=== PATIENT | female | born 1975 | race Caucasian/White ===

== ENCOUNTER 2020-11-03 09:00 | Observation (INO) | payer OTHER ==
[2020-11-03 09:45] LABS: Absolute Lymphocytes (CBC) 2.5 K/uL (0.7-4.9); Basophils % 0.6 % (0-1.3); Hematocrit 42.3 % (36.0-45.0); Lymphocytes % 30.9 % (15.3-44.8); RBC Red Blood Cell Count 4.89 M/uL (3.86-4.86)
[2020-11-03 09:47] LABS: Protime INR 0.94
[2020-11-03] MEDS ORDERED: ASPIRIN 81 MG CHEWABLE TABLET ONE (09:57)
[2020-11-03 10:07] LABS: ALT/SGPT 24 U/L (12-78); AST/SGOT 10 U/L (15-37); Albumin 3.6 g/dL (3.4-5.0); Alkaline Phosphatase 113 U/L (45-117); BUN Blood Urea Nitrogen 12 mg/dL (7-18); Bicarbonate 26 mmol/L (21-32); Bilirubin Direct 0.2 mg/dL (0-0.2); Bilirubin Total 0.8 mg/dL (0.2-1.0); Glucose Level 98 mg/dL (74-106); Magnesium 2.1 mg/dL (1.8-2.4); NT PRO-BNP 58 pg/mL (<125); Potassium 3.9 mmol/L (3.5-5.1); Protein, Total 7.8 g/dL (6.4-8.2); Sodium Level 143 mmol/L (136-145); Troponin (Emerg Dept Use Only) < 0.02 ng/mL (0.0-0.045)
--- NOTE | 2020-11-03 10:12 | RAD REPORT ---
EXAM DESCRIPTION: Stefany Single View11/03/2020 9:47 am CLINICAL HISTORY: Chest pain COMPARISON: 2015 FINDINGS: The lungs appear clear of acute infiltrate. The heart is normal size IMPRESSION: No acute abnormalities displayed
[2020-11-03 11:00] LABS: Urine Blood NEGATIVE (NEG); Urine Glucose NEGATIVE (NEG); Urine Protein NEGATIVE (NEG)
--- NOTE | 2020-11-03 12:13 | RAD REPORT ---
EXAM DESCRIPTION: CT - Abdomen Pelvis W Contrast - 11/03/2020 11:35 am CLINICAL HISTORY: Abdominal pain COMPARISON: none. TECHNIQUE: Computed axial tomography of the abdomen pelvis was obtained. 100 cc Isovue-300 was admin istered intravenously. Oral contrast was not requested which limits evaluation of bowel. All CT scans are performed using dose optimization technique as appropriate and may include automated exposure control or mA/KV adjustment according to patient size. FINDINGS: Cholecystectomy The liver, spleen, pancreas, adrenal and kidneys appear unremarkable. There is no evidence of diverticulitis. Normal appendix Mild stranding within the mesenteric fat centrally IMPRESSION: Mild stranding within the mesenteric fat centrally may indicate a mesenteritis
--- NOTE | 2020-11-03 12:27 | EDPHYS ---
Physician Documentation [facility] Name: Joana Pearce Age: 45 yrs Sex: Female : 1975 Arrival Date: 11/03/2020 Time: 09:01 Bed 13 Private MD: ED Physician Aroldo Ash HPI: 11/03 09:26 This 45 yrs old Female presents to ER via Ambulatory with complaints of Chest kb Pain, Back Pain. 09:26 The patient or guardian reports chest pain that is located primarily in the anterior kb chest wall, left. Onset: 2 day(s) ago. The pain radiates to left back. Associated signs and symptoms: Pertinent positives: abdominal pain, chest congestion. The chest pain is described as aching. Duration: The patient or guardian reports a single episode, that is still ongoing, and unchanged. Modifying factors: The symptoms are alleviated by nothing. the symptoms are aggravated by nothing. Severity of pain: At its worst the pain was moderate in the emergency department the pain is unchanged. The patient has not experienced similar symptoms in the past. The patient has not recently seen a physician. Pt reports she has had left sided chest pain that radiates to back for 2 days. States she has also had gas so she has been taking antacids, which helps the gas but hasn't done anything for the chest pain. States she had lower abd pain yesterday and low back spasms. Reports she stopped taking her metoprolol, lisinopril, clopidogrel, and atorvastatin 2 months ago. Also reports infected tooth a couple of weeks ago that the dentist wanted to pull, but she wanted to try antibiotics and she only took 3-4 days worth of them, did not complete the course. . Historical: - Allergies: 09:09 PENICILLINS; iw - PMHx: 09:09 Anxiety; Seizures; Myocardial infarction; iw - PSHx: 09:09 Heart stents; iw - Immunization history:: Adult Immunizations not up to date. - Social history:: Smoking status: Patient denies any tobacco usage or history of. ROS: 09:23 Constitutional: Negative for fever, chills, and weight loss, Respiratory: Negative for kb shortness of breath, cough, wheezing, and pleuritic chest pain, MS/Extremity: Negative for injury and deformity, Skin: Negative for injury, rash, and discoloration, Neuro: Negative for headache, weakness, numbness, tingling, and seizure. 09:23 Cardiovascular: Positive for chest pain, of the anterior aspect of left upper chest, Negative for edema, orthopnea, palpitations, paroxysmal nocturnal dyspnea. 09:23 Abdomen/GI: Positive for abdominal pain, Negative for nausea, vomiting, and diarrhea. Exam: 09:23 Constitutional: This is a well developed, well nourished patient who is awake, alert, kb and in no acute distress. Head/Face: Normocephalic, atraumatic. Chest/axilla: Normal chest wall appearance and motion. Nontender with no deformity. No lesions are appreciated. Cardiovascular: Regular rate and rhythm with a normal S1 and S2. No gallops, murmurs, or rubs. Normal PMI, no JVD. No pulse deficits. Respiratory: Lungs have equal breath sounds bilaterally, clear to auscultation and percussion. No rales, rhonchi or wheezes noted. No increased work of breathing, no retractions or nasal flaring. Skin: Warm, dry with normal turgor. Normal color with no rashes, no lesions, and no evidence of cellulitis. MS/ Extremity: Pulses equal, no cyanosis. Neurovascular intact. Full, normal range of motion. Neuro: Awake and alert, GCS 15, oriented to person, place, time, and situation. Cranial nerves II-XII grossly intact. Motor strength 5/5 in all extremities. Sensory grossly intact. Cerebellar exam normal. Normal gait. 09:23 Constitutional: The patient appears anxious. 09:23 Abdomen/GI: Inspection: abdomen appears normal, Bowel sounds: normal, Palpation: soft, in all quadrants, mild abdominal tenderness, in the suprapubic area and left lower quadrant. 09:24 ECG was reviewed by the Attending Physician. kb Vital Signs: 09:06 BP 148 / 95; Pulse 75; Resp 16; Temp 98.6; Pulse Ox 100% on R/A; iw 09:55 BP 142 / 93; Pulse 74; Resp 16; bp 10:19 BP 142 / 86; Pulse 68; Resp 19; Pulse Ox 99% on R/A; mh5 11:00 BP 141 / 84; Pulse 72; Resp 19; Pulse Ox 100% ; bp 12:00 BP 173 / 95; Pulse 72; Resp 19; Pulse Ox 100% ; bp 13:00 BP 146 / 97; Pulse 76; Resp 19; Pulse Ox 99% ; bp 13:59 BP 155 / 89; Pulse 72; Resp 21; Pulse Ox 99% ; bp MDM: 09:10 Patient medically screened. kb 09:23 Data reviewed: vital signs, nurses notes. Data interpreted: Pulse oximetry: on room air kb is 100 %. Interpretation: normal. 12:23 The patient was given aspirin in the Emergency Department. Counseling: I had a detailed kb discussion with the patient and/or guardian regarding: the historical points, exam findings, and any diagnostic results supporting the discharge/admit diagnosis, lab results, radiology results, the need for further work-up and treatment in the hospital. 12:25 Physician consultation: Michele Ash MD was contacted at 12:26, regarding admission, kb to the telemetry unit. patient's condition, and will see patient in ED, shortly. 11/03 09:23 Order name: Basic Metabolic Panel kb 11/03 09:23 Order name: CBC with Diff; Complete Time: 09:48 kb 11/03 09:23 Order name: LFT's; Complete Time: 10:09 kb 11/03 09:23 Order name: Magnesium; Complete Time: 10:09 kb 11/03 09:23 Order name: NT PRO-BNP; Complete Time: 10:09 kb 11/03 09:23 Order name: PT-INR; Complete Time: 09:48 kb 11/03 09:23 Order name: Troponin (emerg Dept Use Only); Complete Time: 10:09 kb 11/03 09:23 Order name: XRAY Chest (1 view); Complete Time: 10:19 kb 11/03 09:23 Order name: Basic Metabolic Panel; Complete Time: 10:09 EDMS 11/03 10:20 Order name: Urine Dipstick--Ancillary (enter results); Complete Time: 11:06 eb 11/03 10:20 Order name: Urine --Ancillary (enter results); Complete Time: 11:06 eb 11/03 11:10 Order name: CT Abd/Pelvis - IV Contrast Only; Complete Time: 12:14 kb 11/03 11:17 Order name: SARS-COV-2 RT PCR; Complete Time: 11:22 EDMS 11/03 09:23 Order name: EKG; Complete Time: 09:24 kb 11/03 09:23 Order name: Cardiac monitoring; Complete Time: 09:33 kb 11/03 09:23 Order name: EKG - Nurse/Tech; Complete Time: 09:27 kb 11/03 09:23 Order name: IV Saline Lock; Complete Time: 09:35 kb 11/03 09:23 Order name: Labs collected and sent; Complete Time: 09:35 kb 11/03 09:23 Order name: O2 Per Protocol; Complete Time: 09:35 kb 11/03 09:23 Order name: O2 Sat Monitoring; Complete Time: 09:35 kb 11/03 09:23 Order name: Urine Dipstick-Ancillary (obtain specimen); Complete Time: 11:45 kb 11/03 13:12 Order name: CONS Physician Consult EDMS EC:24 Rate is 69 beats/min. Rhythm is regular. QRS Rowe is Normal. TN interval is normal at kb 152 msec. QRS interval is normal at 78 msec. QT interval is normal at 386 msec. Administered Medications: 09:47 Drug: Aspirin Chewable Tablet 324 mg Route: PO; bp 09:54 Follow up: Only 3 baby aspirins given per SECURITY SYSTEMS SALES REPRESENTATIVE direction. Patient took 1 baby aspirin LENS EDGER.bp Disposition: 15:14 Co-signature as Attending Physician, Aroldo Ash MD. rn Disposition: 11/03/20 12:26 Hospitalization ordered by Michele Ash for Observation. Preliminary diagnosis is Chest pain, unspecified. - Bed requested for Telemetry/MedSurg (observation). - Status is Observation. bp - Condition is Stable. - Problem is new. - Symptoms are unchanged. Signatures: Dispatcher [employer] EDNV Louisa Griffith, SHERMAN-C VEGETABLE VENDOR-CkAicha Cabral, RN TRIP Aroldo Ash MD MD rn Peltier, Brian, RN RN bp Botello, Elizabeth eb Corrections: (The following items were deleted from the chart) 09:47 09:26 Pt reports she has had left sided chest pain that radiates to back for 2 days. kb States she has also had gas so she has been taking antacids, which helps the gas but hasn't done anything for the chest pain. States she had lower abd pain yesterday and low back spasms. Reports she stopped taking her metoprolol, lisinopril and carvedilol 2 months ago. Also reports infected tooth a couple of weeks ago that the dentist wanted to pull, but she wanted to try antibiotics and she only took 3-4 days worth of them, did not complete the course. . kb 10:21 09:32 CORONAVIRUS+MR.LAB.BRZ ordered. EDMS EDMS 13:33 12:26 Hospitalization Ordered by Michele Ash MD for Observation. Preliminary eb diagnosis is Chest pain, unspecified. Bed requested for Telemetry/MedSurg (observation). Status is Observation. Condition is Stable. Problem is new. Symptoms are unchanged. kb 15:13 13:33 11/03/2020 12:26 Hospitalization Ordered by Michele Ash MD for Observation. bp Preliminary diagnosis is Chest pain, unspecified. Bed requested for Telemetry/MedSurg (observation). Status is Observation. Condition is Stable. Problem is new. Symptoms are unchanged. eb
--- NOTE | 2020-11-03 12:27 | ER ---
Nurse's Notes [facility] Name: Joana Pearce Age: 45 yrs Sex: Female : 1975 Arrival Date: 11/03/2020 Time: 09:01 Bed 13 Private MD: Diagnosis: Chest pain, unspecified Presentation: 11/03 09:06 Chief complaint: Patient states: for 2 days has had bad indigestion, gets relief from OTC medicine, is having left sided chest pain through her back and feels breathing is different , has hx of [place] in 2017, had 3 stents placed at [facility], also has intermittent lower and pain, yesterday pain was really bad in lower abd. Coronavirus screen: At this time, the client does not indicate any symptoms associated with coronavirus-19. Ebola Screen: Patient negative for fever greater than or equal to 101.5 degrees Fahrenheit, and additional compatible Ebola Virus Disease symptoms Patient denies exposure to infectious person. Patient denies travel to an Ebola-affected area in the 21 days before illness onset. No symptoms or risks identified at this time. Initial Sepsis Screen: Does the patient meet any 2 criteria? No. Patient's initial sepsis screen is negative. Does the patient have a suspected source of infection? No. Patient's initial sepsis screen is negative. Risk Assessment: Do you want to hurt yourself or someone else? Patient reports no desire to harm self or others. Onset of symptoms was November 01, 2020. 09:06 Method Of Arrival: Ambulatory iw 09:06 Acuity: BRIAN 2 iw Triage Assessment: 09:10 General: Appears distressed, comfortable, Behavior is cooperative, appropriate for age, bp anxious. Pain: Complains of pain in left lower quadrant and suprapubic area and chest and anterior aspect of left upper chest. EENT: No deficits noted. Neuro: No deficits noted. Cardiovascular: Rhythm is sinus rhythm. Respiratory: No deficits noted. GI: Reports lower abdominal pain, upper abdominal pain. : No signs and/or symptoms were reported regarding the genitourinary system. Derm: No deficits noted. Musculoskeletal: No deficits noted. Historical: - Allergies: 09:09 PENICILLINS; iw - PMHx: 09:09 Anxiety; Seizures; Myocardial infarction; iw - PSHx: 09:09 Heart stents; iw - Immunization history:: Adult Immunizations not up to date. - Social history:: Smoking status: Patient denies any tobacco usage or history of. Screenin:15 Abuse screen: Denies threats or abuse. Denies injuries from another. Nutritional bp screening: No deficits noted. Tuberculosis screening: No symptoms or risk factors identified. Fall Risk None identified. Assessment: 09:10 General: SEE TRIAGE NOTE. Pain: Pain radiates to left arm Pain began 2-3 days ago. bp 10:00 Reassessment: No changes from previously documented assessment. Patient and/or family bp updated on plan of care and expected duration. Pain level reassessed. Patient is alert, oriented x 3, equal unlabored respirations, skin warm/dry/pink. 11:00 Reassessment: No changes from previously documented assessment. Patient and/or family bp updated on plan of care and expected duration. Pain level reassessed. Patient is alert, oriented x 3, equal unlabored respirations, skin warm/dry/pink. ALL CURRENT ORDERS COMPLETED. 12:00 Reassessment: No changes from previously documented assessment. Patient and/or family bp updated on plan of care and expected duration. Pain level reassessed. Patient is alert, oriented x 3, equal unlabored respirations, skin warm/dry/pink. ADMIT PENDING. 13:00 Reassessment: No changes from previously documented assessment. Patient and/or family bp updated on plan of care and expected duration. Pain level reassessed. Patient is alert, oriented x 3, equal unlabored respirations, skin warm/dry/pink. 13:57 Reassessment: ADMIT COMPLETED. PT ASSIGNED 205. bp Vital Signs: 09:06 BP 148 / 95; Pulse 75; Resp 16; Temp 98.6; Pulse Ox 100% on R/A; iw 09:55 BP 142 / 93; Pulse 74; Resp 16; bp 10:19 BP 142 / 86; Pulse 68; Resp 19; Pulse Ox 99% on R/A; mh5 11:00 BP 141 / 84; Pulse 72; Resp 19; Pulse Ox 100% ; bp 12:00 BP 173 / 95; Pulse 72; Resp 19; Pulse Ox 100% ; bp 13:00 BP 146 / 97; Pulse 76; Resp 19; Pulse Ox 99% ; bp 13:59 BP 155 / 89; Pulse 72; Resp 21; Pulse Ox 99% ; bp ED Course: 09:01 Patient arrived in ED. mr 09:08 Triage completed. iw 09:09 [facility]C [facility]. kb 09:09 Aroldo Ash MD is Attending Physician. kb 09:09 Arm band placed on. iw 09:11 Marky Rodriguez, RN is Primary Nurse. bp 09:33 Patient has correct armband on for positive identification. Placed in gown. Bed in low mh5 position. Call light in reach. Side rails up X 1. Warm blanket given. teletypesetter monitor on. Pulse ox on. NIBP on. 09:33 Initial lab(s) drawn, by ED staff, sent to lab. EKG done. mh5 09:35 Inserted saline lock: 22 gauge in right forearm, using aseptic technique. Blood bp collected. 09:45 COVID swab sent to lab. mh5 09:47 XRAY Chest (1 view) In Process Unspecified. EDMS 10:20 Urine collected: clean catch specimen, clear. mh5 11:36 CT Abd/Pelvis - IV Contrast Only In Process Unspecified. EDMS 12:26 Michele Ash MD is Hospitalizing Provider. kb 14:42 No provider procedures requiring assistance completed. Patient admitted, IV remains in bp place. Patient maintains SpO2 saturation greater than 95% on room air. Administered Medications: 09:47 Drug: Aspirin Chewable Tablet 324 mg Route: PO; bp 09:54 Follow up: Only 3 baby aspirins given per SEISMIC INTERPRETER direction. Patient took 1 baby aspirin APPLE PACKING HEADER.bp Intake: Outcome: 12:26 Decision to Hospitalize by Provider. kb 14:37 Admitted to Tele accompanied by tech, via wheelchair, room 205, with chart, Report bp called to ANOOP DOMINIQUE 14:37 Condition: stable 14:37 Instructed on the need for admit. 15:13 Patient left the ED. bp Signatures: Dispatcher [employer] EDMS Louisa Griffith FNP-C FNP-Ckb Milad Carmina Aicha Gardiner, TRIP RN Alaina Diaz [facility] Marky Rodriguez, RN RN bp Corrections: (The following items were deleted from the chart) 10:21 09:44 CORONAVIRUS+MR.LAB.BRZ drawn and sent. [facility] EDMS
--- NOTE | 2020-11-03 12:28 | EKG ---
Test Date: 2020-11-03 Test Time: 09:15:22 Braiding Machine Operator: EDISON MEASUREMENT RESULTS: Intervals: Rate: 69 NC: 152 QRSD: 78 QT: 386 QTc: 413 Bogard: P: 40 NC: 152 QRS: 42 T: 10 INTERPRETIVE STATEMENTS: Normal sinus rhythm Cannot rule out Anterior infarct, age undetermined Abnormal ECG Compared to ECG 07/30/2016 06:57:46 Myocardial infarct finding now present T-wave abnormality no longer present Possible ischemia no longer present Electronically Signed On 11-03-20 12:27:38 GROUP SOCIAL WORKER by Flavio Vasquez
--- NOTE | 2020-11-03 13:24 | P.HP ---
Certification for Inpatient Patient admitted to: Observation With expected LOS: <2 Midnights Practitioner: I am a practitioner with admitting privileges, knowledge of patient current condition, hospital course, and medical plan of care. Services: Services provided to patient in accordance with Admission requirements found in Title 42 Section 412.3 of the Code of Federal Regulations Patient History Date of Service: 11/03/20 Reason for admission: Chest Pain, Abdominal pain History of Present Illness: 45yo F, PMH: CAD prior [place] now s/p stents, HTN, Esophageal stricture, GERD who presents to ED due to significant left sided chest pain. Pain is Left sided, sharp and pressure-like, constant since yesterday but severity changes. Reports started 4 days ago with intermittent chest pain. Patient initially thought this was her indigestion, and took some antacids which did help ease the pain slightly. She reports drinking a lot of pineapple juice, and eating red pepper flakes with tumeric on her rice daily for past week. She stopped taking her cardiac medications 2 months ago on her own. She also endorses some abdominal pain and bloating for the past several days as well, possibly intermittently over the past month. She reports no nausea/vomiting, but lots of pain/gas - improved with bowel movements. She was seen previously by Dr. Wilkins ~2 yrs ago, noted to have esophageal stricture needing dilation and gastric ulcers - pt reports she does not take any daily PPI/antacid. In the ED, labwork was rather unremarkable, he states she without any signs of any ischemia, initial troponin negative, CXR: No acute abnormalities. CT abdomen/pelvis: Mild stranding within the mesenteric fat centrally which may indicate a mesenteritis. Allergies Penicillins Allergy (Verified 11/03/20 14:37) Shortness of breath Home Medications: Atorvastatin Calcium [Lipitor] 80 mg PO BEDTIME 11/03/20 Clopidogrel Bisulfate [Plavix] 75 mg PO DAILY 11/03/20 Metoprolol Tartrate 25 mg PO BID 11/03/20 lisinopriL [Lisinopril] 5 mg PO DAILY 11/03/20 - Past Medical/Surgical History -: GERD -: CAD, prior [place], status post stents -: Hypertension -: Esophageal stricture s/p dilation -: Cardiac stents -: Cholecystectomy -: Hysterectomy -: c-sxn - Family History Father History Unknown: Yes -: Heart disease Mother History Unknown: Yes -: Stroke, Cancer, Seizures, Blood disorders, Other (see notes) - Social History Smoking Status: Never smoker Alcohol use: Yes Place of Residence: Home Review of Systems 10-point ROS is otherwise unremarkable Physical Examination - Studies Laboratory Data (last 24 hrs) 11/03/20 09:35: PT 10.8, INR 0.94 11/03/20 09:35: WBC 8.20, Hgb 14.2, Hct 42.3, Plt Count 398 11/03/20 09:35: Sodium 143, Potassium 3.9, BUN 12, Creatinine 0.33 L, Glucose 98, Magnesium 2.1, Total Bilirubin 0.8, AST 10 L, ALT 24, Alkaline Phosphatase 113 Assessment and Plan - Advance Directives Does patient have a Living Will: No Does patient have a Durable POA for Healthcare: No Physician Review Additional Text: Physical Exam: Gen: NAD, AAOx3 HEENT: normal conjunctiva, sclera anicteric CV: RRR, +systolic murmur, +TTP at left chest Pulm: CTAB, no wheeze/rales, nonlabored on RA Abd: +epigastric tenderness, no rebound, soft Ext: no rash, no edema neuro: AAOx3, moves all extremities Problem List: Chest Pain CAD s/p stenting Abdominal pain & Bloating, mesenteritis HTN Esophageal stricture -given significant cardiac history and patient off medications x 2 months, concern for cardiac etiology -pt's EKG and initial trop ok, with some tenderness on chest wall -cardiology consulted -trend trop, start ASA, statin, BB -pt also with abdominal pain/bloating, h/o ulcers, CT showing mesenteritis - will consult GI as well, possible ulcers may be source of pain - pt states antacids help take the edge off, but not away completely. has been eating red peppers, acidic drinks lately as well -for possible EGD tomorrow if cardiac workup negative -Cipro & flagyl for mesenteritis VTE: lovenox Code: full Dispo: anticipate dc home in 24-48hrs Time Spent Managing Pts Care (In Minutes): 65
[2020-11-03 15:42] VITALS: BMI 25.4
[2020-11-03 15:44] LABS: HDL Cholesterol 45 mg/dL (40-60); LDL Cholesterol, Calculated 131 (<130); Troponin I < 0.02 ng/mL (0.0-0.045)
[2020-11-03] MEDS: ENOXAPARIN 40 MG/0.4 ML SQ SCH (15:53)
[2020-11-03] MEDS: SUCRALFATE 1 GM TABLET PO SCH ×2 (15:53→20:54)
[2020-11-03] MEDS: PANTOPRAZOLE 40MG TABLET PO SCH (15:53)
[2020-11-03] MEDS: METRONIDAZOLE 500mg IVPB 500 MG/100 ML BAG IV SCH (16:45)
[2020-11-03] MEDS: Ringers Lactate 1,000 ML IV SCH (16:45)
[2020-11-03] MEDS ORDERED: CIPROFLOXACIN 400mg IV 400 MG/200 ML BAG IV SCH (21:00)
[2020-11-03] MEDS ORDERED: ATORVASTATIN 20 MG TAB PO SCH (21:00)
[2020-11-03] MEDS ORDERED: DIPHENHYDRAMINE 50 MG/ML VIAL IV ONE (21:26)
[2020-11-03] MEDS ORDERED: FAMOTIDINE 20 MG/2 ML VIAL IV ONE (22:00)
[2020-11-04] MEDS: METRONIDAZOLE 500mg IVPB 500 MG/100 ML BAG IV SCH ×3 (00:23→16:33)
[2020-11-04 03:58] LABS: Absolute Lymphocytes (CBC) 2.2 K/uL (0.7-4.9); Basophils % 0.7 % (0-1.3); Hematocrit 36.5 % (36.0-45.0); Lymphocytes % 29.7 % (15.3-44.8); RBC Red Blood Cell Count 4.19 M/uL (3.86-4.86)
[2020-11-04 04:16] LABS: ALT/SGPT 22 U/L (12-78); AST/SGOT 10 U/L (15-37); Albumin 2.8 g/dL (3.4-5.0); Alkaline Phosphatase 96 U/L (45-117); BUN Blood Urea Nitrogen 7 mg/dL (7-18); Bicarbonate 27 mmol/L (21-32); Bilirubin Direct 0.2 mg/dL (0-0.2); Bilirubin Total 0.6 mg/dL (0.2-1.0); Glucose Level 107 mg/dL (74-106); Potassium 3.7 mmol/L (3.5-5.1); Protein, Total 6.3 g/dL (6.4-8.2); Sodium Level 144 mmol/L (136-145)
[2020-11-04] MEDS: Ringers Lactate 1,000 ML IV SCH ×2 (06:37→13:10)
[2020-11-04] MEDS ORDERED: ASPIRIN EC 81 MG TAB PO SCH (09:00)
[2020-11-04] MEDS ORDERED: CEFAZOLIN/NS 1gm 1 GM/50 ML BAG IVPB SCH (09:00)
[2020-11-04] MEDS: ENOXAPARIN 40 MG/0.4 ML SQ SCH (09:04)
[2020-11-04] MEDS: SUCRALFATE 1 GM TABLET PO SCH ×3 (09:06→16:30)
[2020-11-04] MEDS: PANTOPRAZOLE 40MG TABLET PO SCH ×2 (09:07→16:32)
[2020-11-04] MEDS: MORPHINE 2 MG/ML SYR IV PRN ×2 (09:12→14:30)
[2020-11-04 10:48] VITALS: O2SAT 97
[2020-11-04] MEDS ORDERED: propofoL 200 MG/20 ML VIAL IV ONE (12:13)
--- NOTE | 2020-11-04 12:31 | ENDO RPT ---
[address], [address] EGD WITH DILATION PROCEDURE REPORT EXAM DATE: 11/04/2020 PATIENT NAME: Joana Pearce MR#: [id number] BIRTHDATE: 1975 ATTENDING: Omari Camara Dr STATUS: inpatient - 7 AUTOMOTIVE MECHANICAL ENGINEER: Isabel Poe RN, Janice Parsons RN, and Vero Rosa CST INDICATIONS: The patient is a 45 yr old Female here for an EGD with dilation due to GERD, atypical chest pain, and dysphagia PROCEDURE PERFORMED: EGD with biopsy and EGD with balloon dilatation MEDICATIONS: Per Anesthesia. TOPICAL ANESTHETIC: none CONSENT: The patient understands the risks and benefits of the procedure and understands that these risks include, but are not limited to: sedation, allergic reaction, infection, perforation and/or bleeding. Alternative means of evaluation and treatment include, among others: physical exam, x-rays, and/or surgical intervention. The patient elects to proceed with this endoscopic procedure. DESCRIPTION OF PROCEDURE: During intra-op preparation period all mechanical medical equipment was checked for proper function. Hand hygiene and appropriate measures for infection prevention was taken. After the risks, benefits and alternatives of the procedure were thoroughly explained, Informed consent was verified, confirmed and timeout was successfully executed by the treatment team. The patient was anesthetized with topical anesthesia and the Pentax EG-[id number] ([id number]) endoscope was introduced through the mouth and advanced to the second portion of the duodenum. The instrument was slowly withdrawn as the mucosa was fully examined. Spasms found in the lower esophagus. 12/13.5/15 mm balloon dilatations were performed. Mild gastritis was found in the total stomach. Multiple biopsies were obtained and sent to pathology. Dilation was performed at lower esophagus. DILATOR: SIZE(S): RESISTANCE: HEME: APPEARANCE: Dilator: Balloon Size(s): 12/13.5/15 mm Resistance: minimal Heme: none Appearance: adequate COMMENT: Retroflexed views revealed no abnormalities. ADVERSE EVENTS: There were no complications. IMPRESSIONS: 1. Spasm in the lower esophagus, s/p 12/13.5/15 mm balloon dilatations 2. Mild gastritis in the total stomach, s/p biopsies RECOMMENDATIONS: 1. await biopsy results 2. acid suppression therapy REPEAT EXAM: Omari Camara Dr eSigned: Omari Camara Dr 11/04/2020 12:31 PM cc: CPT CODES: ICD9 CODES: PATIENT NAME: Joana Pearce MR#: [id number]
[2020-11-04] MEDS ORDERED: LIDOCAINE 1% MPF 5 ML VIAL ONE (12:33)
[2020-11-04] MEDS ORDERED: LABETALOL 20 MG/4ML SYRINGE IV ONE (12:33)
[2020-11-04] MEDS: CEFAZOLIN/SWI 1gm 1 GM/10 ML SYR IV SCH ×2 (13:10→17:00)
--- NOTE | 2020-11-04 20:25 | P.DS ---
Admission Date: 11/03/20 Discharge Date: 11/04/20 Disposition: ROUTINE DISCHARGE Discharge Condition: GOOD Reason for Admission: Chest Pain, Abdominal pain Consultations: Cardiology - Dr. Vasquez GI - Dr. Camara Procedures: CXR (11/03): No acute abnormalities displayed CT Abd/pelvis (11/03): Mild stranding within the mesenteric fat centrally may indicate a mesenteritis EGD (11/04): by Dr. Camara; final report not available at time of discharge. Reportedly with gastritis and esophageal stricture needing dilatation. Problem List: Chest Pain secondary to gastritis CAD s/p stenting Abdominal pain & Bloating, mesenteritis HTN h/o Esophageal stricture Brief History of Present Illness: 45yo F, PMH: CAD prior OR now s/p stents, HTN, Esophageal stricture, GERD who presents to ED due to significant left sided chest pain. Pain is Left sided, sharp and pressure-like, constant since yesterday but severity changes. Reports started 4 days ago with intermittent chest pain. Patient initially thought this was her indigestion, and took some antacids which did help ease the pain slightly. She reports drinking a lot of pineapple juice, and eating red pepper flakes with tumeric on her rice daily for past week. She stopped taking her cardiac medications 2 months ago on her own. She also endorses some abdominal pain and bloating for the past several days as well, possibly intermittently over the past month. She reports no nausea/vomiting, but lots of pain/gas - improved with bowel movements. She was seen previously by Dr. Wilkins ~2 yrs ago, noted to have esophageal stricture needing dilation and gastric ulcers - pt reports she does not take any daily PPI/antacid. In the ED, labwork was rather unremarkable, EKG without any signs of ischemia, initial troponin negative, CXR: No acute abnormalities. CT abdomen/pelvis: Mild stranding within the mesenteric fat centrally which may indicate a mesenteritis. Hospital Course: She was monitored on telemetry, troponins remained negative, Cardiology was consulted and recommended no further workup/evaluation at this time. GI was consulted due to concern for gastric ulcers / esophageal stricture as cause for her chest pain. She underwent EGD on 11/04 which revealed esophageal stricture (underwent dilatation), and gastritis. Dr. Camara recommended treatment with pr ilosec and pepcid. Patient to f/u in the next few weeks. She reported feeling a significant difference after EGD, was feeling better. She was discharged home on Ancef/flagyl - patient had some erythema and burning pain at IV site after receiving Ciprofloxacin. 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 Vital Signs/Physical Exam: Physical Exam: Gen: NAD, AAOx3 HEENT: normal conjunctiva, sclera anicteric CV: RRR, +systolic murmur Pulm: CTAB, no wheeze/rales, nonlabored on RA Abd: +epigastric tenderness, no rebound, soft Ext: no rash, no edema neuro: AAOx3, moves all extremities Temp Pulse Resp BP Pulse Ox 97.7 F 84 18 155/76 H 96 11/04/20 16:00 11/04/20 16:00 11/04/20 16:00 11/04/20 16:00 11/04/20 16:00 Laboratory Data at Discharge: WBC 7.40 K/uL (4.3-10.9) 11/04/20 03:39 Hgb 12.2 g/dL (12.0-15.0) 11/04/20 03:39 Hct 36.5 % (36.0-45.0) 11/04/20 03:39 Plt Count 355 K/uL (152-406) 11/04/20 03:39 PT 10.8 SECONDS (9.5-12.5) 11/03/20 09:35 INR 0.94 11/03/20 09:35 Sodium 144 mmol/L (136-145) 11/04/20 03:39 Potassium 3.7 mmol/L (3.5-5.1) 11/04/20 03:39 BUN 7 mg/dL (7-18) 11/04/20 03:39 Creatinine 0.39 mg/dL (0.55-1.3) L 11/04/20 03:39 Glucose 107 mg/dL (74-106) H 11/04/20 03:39 Magnesium 2.1 mg/dL (1.8-2.4) 11/03/20 09:35 Total Bilirubin 0.6 mg/dL (0.2-1.0) 11/04/20 03:39 AST 10 U/L (15-37) L 11/04/20 03:39 ALT 22 U/L (12-78) 11/04/20 03:39 Alkaline Phosphatase 96 U/L (45-117) 11/04/20 03:39 Troponin I < 0.02 ng/mL (0.0-0.045) 11/04/20 03:39 Triglycerides 113 mg/dL (<150) 11/03/20 15:15 Cholesterol 199 mg/dL (<200) 11/03/20 15:15 HDL Cholesterol 45 mg/dL (40-60) 11/03/20 15:15 Cholesterol/HDL Ratio 4.42 11/03/20 15:15 Home Medications: Atorvastatin Calcium [Lipitor] 80 mg PO BEDTIME 11/03/20 Clopidogrel Bisulfate [Plavix*] 75 mg PO DAILY 11/03/20 Metoprolol Tartrate 25 mg PO BID 11/03/20 lisinopriL [Lisinopril] 5 mg PO DAILY 11/03/20 Cephalexin [Keflex] 500 mg PO Q6HR 7 Days #28 cap 11/04/20 Famotidine [Pepcid] 40 mg PO BEDTIME 30 Days #30 tablet 11/04/20 Omeprazole [Prilosec] 40 mg PO DAILY 30 Days #30 capsule. 11/04/20 metroNIDAZOLE [Flagyl] 500 mg PO Q8H 7 Days #21 tablet 11/04/20 New Medications: Cephalexin [Keflex] 500 mg PO Q6HR 7 Days #28 cap metroNIDAZOLE [Flagyl] 500 mg PO Q8H 7 Days #21 tablet Famotidine [Pepcid] 40 mg PO BEDTIME 30 Days #30 tablet Omeprazole [Prilosec] 40 mg PO DAILY 30 Days #30 capsule. Diet: AHA (bland) Activity: Ad noelle Followup: RIGOBERTO FRANKLIN [Primary Care Provider] - Time spent managing pt's care (in minutes): 45
[2020-11-04] MEDS ORDERED: FAMOTIDINE 20 MG/2 ML VIAL IV ONE (21:00)
[2020-11-05 10:14] VITALS: BP 155/76; TEMP 97.7
--- NOTE | 2020-11-09 16:49 | CON ---
Date of Consultation: 11/04/2020 Reason For Consultation: Chest pain. History Of Present Illness: Ms. Pearce is a 45-year-old woman, who came in with anterior chest wall kind of pain that radiates to the back. Had abdominal pain and chest congestion. Denies any nausea , vomiting, diaphoresis, PND, orthopnea, pedal edema, palpitations, or syncope. She is already ruled out for myocardial infarction. Review of Systems: Positive for recent tooth infection, on antibiotics. Allergies: INCLUDE PENICILLIN. Past Medical History: Includes anxiety, seizure, coronary artery disease status post stents in the p ast. Social History: Unremarkable. Family History: Unremarkable. Physical Examination: Vital Signs: Stable. She was afebrile, slightly hypertensive at 148/95. O2 saturation was room air . HEENT: Negative. Neck: Supple without any bruit, lymphadenopathy, JVD, or thyromegaly. Chest: Clear to auscultation and percussion. Cardiac: Revealed a regular rhythm and rate. No murmurs, gallops, or rubs. Abdomen: Benign. Extremities: Revealed no clubbing, cyanosis, or edema. Diagnostic Data: All within normal limit from a cardiac standpoint. Impression And Plan: 1.Atypical chest pain. 2.History of coronary artery disease, status post stent, stable. 3.Recent tooth infection. 4.Anxiety. 5.Dyslipidemia. 6.Gastroesophageal reflux disease. The patient presently is on antibiotics, Lipitor, aspirin, Loven ox, Pepcid, pantoprazole, and sucralfate. There is a plan for her to have an endoscopy by Dr. Camara . From my standpoint, she had an EKG that is unremarkable, showed possible old anterior infarction, but that may have to do with her body habitus. Her chest x-ray was unremarkable. I do not think we are dealing with cardiac symptoms. I think this is all gastric in nature. It is very different than her previous coronary artery disease and stent history. I think she is clear for endoscopy and she can go home after that. I will be available for questions if the need arises. No cardiac workup rec ommended at this point. RODERICK/SHANDRA Voice ID: [id number] Report ID: [id number]
--- NOTE | 2020-11-15 21:01 | CON ---
Date of Consultation: 11/04/2020 Reason For Consultation: Gastroesophageal reflux disease with atypical chest pain and dysphagia. History Of Present Illness: This patient is a 45-year-old white female with history of peptic ulcer disease, esophageal stricture, coronary artery disease, status post CT in 2017, cardiac stents, hyper lipidemia, , and laparoscopic cholecystectomy. The patient presented to the hospital with c hest pain and abdominal pain. The patient ruled out for CT. The patient had EGD approximately 2 yea rs ago, which revealed esophageal stricture and the patient had gastric ulcers. The patient also on this admission CT scan revealed some possible mild stranding in the mesentery, mesenteric fat indicat mary of mesenteritis. The patient notes intermittent chest pain over the past 4 days, pressure also w ith indigestion. Antacids seem to ease the indigestion and also her chest pain. The patient stopped taking her cardiac medications 2 months ago on her own. She also has some bloating and appears lowe r abdominal pain with her bloating on the right and left lower quadrants as well, but denies nausea, vomiting, although she does have gas and bloating and lower abdominal pain. Past Medical History: Significant for peptic ulcer disease, esophageal stricture with EGD approximat philip 2 years ago, hyperlipidemia, coronary artery disease, status post CT in 2017, cardiac stents, lap aroscopic cholecystectomy, hysterectomy, and C-sections. Also history of gastroesophageal reflux dis ease by chart review. Social History: She is , 3 kids. No tobacco. She does drink alcohol. Family History: Father of congestive heart failure, also had a myocardial infarctions x3. Moth er is alive, has a history of stroke. 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 She has polycythemia vera, diabetes, hypothyroidism, and seizures. Brother has kidney disease. Medications: Include at home, Lipitor, Plavix, metoprolol, lisinopril. Allergies: PENICILLIN. Review of Systems: The patient has gastroesophageal reflux disease, chest pain, and dysphagia. She denies any melena, h ematochezia, hematemesis, coffee-ground emesis, hematuria, dysuria, polyuria, polydipsia, shortness o f breath, seizure, syncope, lower extremity edema, muscle aches, joint aches, backaches, depression, and anxiety. Physical Examination: Vital Signs: The patient is 5 feet, 130 pounds, BMI of 25.4 kg/m2. She has a temperature of 97.3 de grees Fahrenheit, pulse 75, respirations 18, blood pressure 177/80, O2 saturation 98%. General: Well-nourished, well-developed female, in no acute distress, lying in bed. HEENT: Normocephalic, atraumatic. Anicteric. Pupils equal, round, and reactive to light. Extraocu lar movements intact. Oropharynx is clear. Neck: Supple. No masses. Respirations: Clear to auscultation bilaterally. Cardiac: Regular rate and rhythm. No gallops or rubs. Gastrointestinal: Positive bowel sounds. Soft, nontender, nondistended. No hepatosplenomegaly. Ma ybe some mild tenderness in the right and left lower quadrant area, but that is no other pain. No re bound, peritoneal or Francis sign. Extremities: No clubbing, cyanosis, or edema. 2+ pulses. Neurologic: Alert and oriented x3. Grossly nonfocal. 5/5 motor sensation intact to light touch. A ble to move all extremities well with 5/5 motor. Laboratory Data: Yesterday and today on the , the patient has a white count of 7.4, hemoglobin 12 .2, hematocrit 36.5, MCV of 87, platelet count of 355, polys 57%. PT of 10.8, INR of 0.94. The clarice ent has a sodium 144, potassium 3.7, chloride 112, bicarb 27, BUN of 7, creatinine of 0.4, glucose 10 7, calcium 8.4, magnesium 2.1, total bilirubin 0.6, direct bilirubin 0.2, AST of 10, ALT of 22, alkal ine phosphatase 696. Troponin I of less than 0.02 x4. Total protein 6.3, albumin 2.8, globulin 3.5, triglycerides 113, cholesterol 199, LDL of 131, HDL 45. UA was negative. COVID-[address] of the abdomen and pelvis revealed mild stranding in the mesenteric fat centrally indicatin g possible mesenteritis. Impression: 1.Gastroesophageal reflux disease, atypical chest pain, improved on antacids. We will investigate w ith EGD. 2.Dysphagia, probably related to reflux. 3.Mesenteritis with abnormal CT abdomen and pelvis revealing fat stranding in the mesentery of the a bdomen with right and left lower quadrant pain associated with bloating. 4.History of peptic ulcer disease and esophageal stricture, hyperlipidemia, coronary artery disease, status post myocardial infarction in 2017 with cardiac stents, laparoscopic cholecystectomy, hystere ctomy, and sections. Recommendation: 1.Proceed with EGD. 2.PPI therapy. 3.IV fluids, IV antibiotics. 4.P.r.n. pain medicines as well. KARRIE/SHANDRA Voice ID: [id number] Report ID: [id number]
== END 2020-11-04 19:49 | disposition home or self-care (01) ==
LOC: ER 09:00 → ERHOLD 13:11 → 2ND 14:38
PROVIDERS: ADMIT Hospitalist; ATTEND Hospitalist
PROC: 0D738ZZ Dilation of Lower Esophagus, Via Natural or Artificial Opening Endoscopic (ICD-10-PCS; 2020-11-04)
PROC: 0DB68ZX Excision of Stomach, Via Natural or Artificial Opening Endoscopic, Diagnostic (ICD-10-PCS; principal; 2020-11-04 11:15)
DX: K29.60 Other gastritis without bleeding (principal); I25.10 Atherosclerotic heart disease of native coronary artery without angina pectoris; Z95.5 Presence of coronary angioplasty implant and graft; E78.5 Hyperlipidemia, unspecified; K21.9 Gastro-esophageal reflux disease without esophagitis; K65.8 Other peritonitis; Z20.822 Contact with and (suspected) exposure to COVID-19; F41.9 Anxiety disorder, unspecified; I10 Essential (primary) hypertension; I25.2 Old myocardial infarction; K22.2 Esophageal obstruction; R94.31 Abnormal electrocardiogram [ECG] [EKG]
CPT/HCPCS: 93005; 85025 ×2; 80048 ×2; 36415; 83735; 88312; 81025; 85610; 80061; 80076 ×2; 88305; 81003; 84484 ×4; 83880; 74177; 71045; 94760 ×2; 99285; 43239; 43249; U0003; Q9967; J2704; J1200; J1650 ×2; J2270 ×2; J0690; J7120 ×3; J0744; C1726; G0378